=== PATIENT | male | born 1945 | race Caucasian/White ===

== ENCOUNTER → 2017-07-25 | Outpatient (CLI) | payer MEDICARE | END | disposition home or self-care (01) | LOC: OIH 13:16 | PROVIDERS: ATTEND Internal Medicine | DX: R05 Cough (principal) | CPT/HCPCS: 71046 ==

== ENCOUNTER 2019-09-13 06:34 | Day surgery (SDC) | payer MEDICARE ==
[~2019-09-13] VITALS: Ht 182.9 cm; Wt 126.1 kg
[2019-09-13] VITALS (7 sets, daily range): BP systolic 89–124; BP diastolic 44–84
[~2019-09-13 06:34] MED LIST: AMLO5TAB9 PO; APIX5TAB PO; ASPI-555 PO; ATOR-2 PO; LISI-613 PO; METO25TA3 PO; SPIR25TA6 PO
[2019-09-13] MEDS ORDERED: SODIUM CHLORIDE 0.9% 1000ML 1,000 ML IV ONE (06:51)
[2019-09-13] MEDS ORDERED: METO-408 PO (07:41)
[2019-09-13] MEDS ORDERED: PROPOFOL 10 MG/ML 20ML VIAL IV ONE (10:51)
[2019-09-13] MEDS ORDERED: LIDOCAINE HCL 1% 20 ML VIAL ONE (10:52)
== END 2019-09-13 12:00 | disposition home or self-care (01) ==
LOC: SUH 06:34 → DAH 06:34 → SUH 12:00
PROVIDERS: ATTEND Surgery
DX: K21.9 Gastro-esophageal reflux disease without esophagitis (principal); I10 Essential (primary) hypertension; I48.91 Unspecified atrial fibrillation; I25.10 Atherosclerotic heart disease of native coronary artery without angina pectoris; Z98.890 Other specified postprocedural states; Z98.52 Vasectomy status; E66.01 Morbid (severe) obesity due to excess calories; Z95.0 Presence of cardiac pacemaker; Z68.38 Body mass index [BMI] 38.0-38.9, adult
CPT/HCPCS: 43235; A4215; A4221; A4222; A4223; A4606; A4620; A4663; J2704; J7030

== ENCOUNTER → 2022-03-14 | Outpatient (CLI) | payer MEDICARE ==
[~2022-03-14] MED LIST changes: +AMLO-257 PO; -AMLO5TAB9 PO; -ASPI-555 PO; +ASPI-556 PO; -LISI-613 PO; +LISI20TA24 PO; +METO-408 PO; -METO25TA3 PO
== END | disposition home or self-care (01) ==
LOC: RAH 08:40
PROVIDERS: ATTEND Internal Medicine Interventional Cardiology
DX: R60.0 Localized edema (principal)
CPT/HCPCS: 93971